=== PATIENT | female | born 1975 ===

== ENCOUNTER → 2021-05-08 | Emergency (ER) | payer SELFPAY ==
[~2021-05-08] MED LIST: BUPIVACAINE/PF (0.5%) 5 MG/1 ML 30 ML VIAL INFILTRATI ONE; LIDOCAINE (1%) 10 MG/1 ML VIAL 20 ML MDV ONE
== END ==
LOC: ED 12:27
DX: R10.9 Unspecified abdominal pain (principal); Z53.21 Procedure and treatment not carried out due to patient leaving prior to being seen by health care provider
CPT/HCPCS: J3490